=== PATIENT | female | born 1970 | race Caucasian/White ===

== ENCOUNTER 2018-11-25 07:47 | Outpatient (CLI) | payer OTHER ==
--- NOTE | 2018-11-25 09:22 | ULT ---
PELVIC ULTRASOUND: History: Pelvic pain. Bloating. Comparison: None. Technique: Transabdominal and endovaginal imaging of the pelvis is performed. Ovaries are interrogate d with grayscale, color flow, and doppler imaging with spectral waveform analysis. FINDINGS: Retroverted uterus was identified. No obvious myometrial masses. Uterus measures 6.3 x 3.2 x 4.5 cm. Endometrial diameter is 0.3 cm, with a homogeneous echotexture. Both ovaries have a normal echotexture. Right ovary measures 1.7 x 1.8 x 3.0 cm. Left ovary measures 1.9 x 1.9 x 1.8 cm. There is no free fluid in the pelvis. Ovarian Doppler: Vascular flow to both ovaries. IMPRESSION: Retroverted uterus. Otherwise, unremarkable exam. POS: [facility]
== END 2018-11-25 07:48 | disposition home or self-care (01) ==
LOC: SCSULT 07:47
PROVIDERS: ATTEND Internal Medicine Gastroenterology
DX: Z12.11 Encounter for screening for malignant neoplasm of colon (principal); R14.0 Abdominal distension (gaseous); R10.30 Lower abdominal pain, unspecified; R14.3 Flatulence; N85.4 Malposition of uterus; Z83.71 Family history of colonic polyps
CPT/HCPCS: 76856